=== PATIENT | male | born 1950 | race Caucasian/White ===

== ENCOUNTER 2022-02-20 10:20 | Inpatient (IN) ==
[2022-02-21] MEDS ORDERED: Magnesium Hydroxide LIQ 30 ML UDC PO PRN (12:17)
[2022-02-21] MEDS ORDERED: Senna TAB 8.6 mg TAB PO PRN (12:17)
[2022-02-21] MEDS: Enoxaparin 30 MG/0.3 ML SYR SUBCUT SCH (21:14)
[2022-02-22] MEDS: Enoxaparin 30 MG/0.3 ML SYR SUBCUT SCH ×2 (08:31→22:12)
[2022-02-23] MEDS: Enoxaparin 30 MG/0.3 ML SYR SUBCUT SCH ×2 (08:11→22:07)
[2022-02-23] MEDS ORDERED: Al Hydrox/Mg Hydrox/Simet LIQ 30 ML UDC PO PRN (16:40)
[2022-02-23] MEDS ORDERED: Calcium Carb (TUMS) 500 mg CHEW TAB PO PRN (20:37)
[2022-02-24 06:32] LABS: Hematocrit 29 % (42-52); Hemoglobin 9.9 g/dL (14.0-18.0); Mean Corpuscular HGB Conc 34 g/dL (31-36); Mean Corpuscular Hemoglobin 30 pg (27-31); Mean Corpuscular Volume 89 fL (80-94); Mean Platelet Volume 8.2 fL (7.4-10.4); Platelet Count 438 10^3/uL (150-450); Red Cell Distribution Width 14 % (10-15); White Blood Count 7.8 10^3/uL (3.5-10.8)
[2022-02-24 07:11] LABS: ABS Basophils 0.1 10^3/ul (0-0.2); ABS Eosinophils 0.1 10^3/ul (0-0.6); ABS Lymphocytes 1.3 10^3/ul (1.0-4.8); ABS Monocytes 0.6 10^3/ul (0-0.8); ABS Neutrophils 5.7 10^3/ul (1.5-7.7); Eosinophil % 1.1 %; Nucleated Red Blood Cells % 0.1
[2022-02-24 07:14] LABS: Albumin 3.3 g/dL (3.2-5.2); Albumin/Globulin Ratio 1.4 (1-3); Calcium 8.9 mg/dL (8.6-10.3); Globulin 2.3 g/dL (2-4); Potassium 4.6 mmol/L (3.5-5.0); Total Bilirubin 0.6 mg/dL (0.2-1.0); Total Protein 5.6 g/dL (6.4-8.9)
[2022-02-24] MEDS: Enoxaparin 30 MG/0.3 ML SYR SUBCUT SCH ×2 (08:44→20:18)
[2022-02-25] MEDS: Enoxaparin 30 MG/0.3 ML SYR SUBCUT SCH ×2 (08:31→20:43)
[2022-02-26] MEDS: Enoxaparin 30 MG/0.3 ML SYR SUBCUT SCH ×2 (10:10→20:27)
[2022-02-27] MEDS: Enoxaparin 30 MG/0.3 ML SYR SUBCUT SCH ×2 (09:58→21:44)
[2022-02-28 06:56] VITALS: BP 115/60
[2022-02-28] MEDS: Enoxaparin 30 MG/0.3 ML SYR SUBCUT SCH (09:19)
== END 2022-02-28 12:03 | disposition home or self-care (01) | DRG 561 ==
LOC: PMRU 02-21 10:59
PROVIDERS: ADMIT Physical Medicine & Rehabilitation; ATTEND Physical Medicine & Rehabilitation